=== PATIENT | female | born 1995 | race Caucasian/White ===

== ENCOUNTER 2016-10-05 13:45 | Emergency (ER) | payer OTHER ==
[~2016-10-05] VITALS: Ht 175.3 cm; Wt 95.0 kg
[~2016-10-05 13:45] MED LIST: AMOX500T PO; ZITH250T PO
[2016-10-05 13:50] VITALS: BP 135/87; PULSE 83; RESP 16; TEMP 98.3; O2SAT 94
--- NOTE | 2016-10-05 13:59 | PD ---
HPI Chief Complaint: Back/ Neck Pain or Injury Time Seen by Provider: 13:57 Travel History International Travel<30 days: No Contact w/Intl Traveler<30days: No Traveled to known affect area: No History of Present Illness HPI 20-year-old female presents the emergency department status post fall earlier this morning on slippery steps landing on her left elbow and back. Patient's chief complaint is of pain in the left lateral elbow with decreased ability to extend it. Patient denies numbness, tingling, or decreased director insurance strength in the left hand. She states her left shoulder feels fine. She has some mild tenderness on the lower lumbar region, but no other significant injury complaints. Her pain the elbow is 5 out of 10. She is allergic to amoxicillin and meclizine. PFSH Past Medical History Hx Anticoagulant Therapy: No Diabetes: No Diminished Hearing: Yes (L ear) GERD: Yes Genitourinary: Yes (HX UTI) Respiratory: Yes Immunizations Current: Yes ?: Not : 0 Social History Alcohol Use: Yes (OCCASIONALLY) Tobacco Use: No Substance Use: No Allergies-Medications (Allergen,Severity, Reaction): Coded Allergies: Amoxicillin (Verified Allergy, Mild, RASH, 10/05/16) Meclizine (Verified Adverse Reaction, Intermediate, DIARRHEA, 10/05/16) Reported Meds & Prescriptions Reported Meds & Active Scripts Active Tramadol (Tramadol HCl) 50 Mg Tab 50 Mg PO Q6H PRN Ibuprofen 800 Mg Tab 800 Mg PO Q8H PRN Reported Excedrin Extra Strength (Cfolldn-Fjdkwecguxylr-Aqtnerqn) 250-250-65 Mg Tab 2 Tab PO PRN Review of Systems Except as stated in HPI: all other systems reviewed are Neg General / Constitutional: No: Fever Eyes: No: Visual changes HENT: No: Headaches Cardiovascular: No: Chest Pain or Discomfort Respiratory: No: Shortness of Breath Gastrointestinal: No: Abdominal Pain Genitourinary: No: Dysuria Musculoskeletal: No: Pain Skin: No Rash Neurologic: No: Weakness Psychiatric: No: Depression Endocrine: No: Polydipsia Hematologic/Lymphatic: No: Easy Bruising Physical Exam Narrative GENERAL: Patient appears in no acute distress. SKIN: Warm and dry. Normal turgor. Normal color. No abrasions or ecchymosis noted. HEAD: Atraumatic. Normocephalic. EYES: Pupils equal and round. No scleral icterus. No injection or drainage. ENT: No nasal bleeding or discharge. Mucous membranes pink and moist. Pharynx is clear. No dental injury. Airway is patent. NECK: Trachea midline. No bony tenderness or step-off. Range of motion is full and nontender. CARDIOVASCULAR: Regular rate and rhythm. RESPIRATORY: No accessory muscle use. Clear to auscultation. Breath sounds equal bilaterally. MUSCULOSKELETAL: Extremities without clubbing, cyanosis, or edema. No obvious deformities. Patient has pain over the lateral upper condyle and proximal lateral forearm. Hand and wrist are normal. Flexion and extension of the left elbow are limited secondary to pain. Patient has mild tenderness over the lower lumbar region. No specific bony tenderness or deformity. NEUROLOGICAL: Awake and alert. No obvious cranial nerve deficits. Motor grossly within normal limits. Five out of 5 muscle strength in the arms and legs. Normal speech. PSYCHIATRIC: Appropriate mood and affect; insight and judgment normal. Data Data Last Documented VS Vital Signs Date Time Temp Pulse Resp B/P Pulse Ox O2 Delivery O2 Flow Rate FiO2 10/05/16 13:50 98.3 83 16 135/87 94 Orders Elbow, Complete (4 Vws) (10/05/16 13:59) Ice/Cold Pack (10/05/16 13:59) Ketorolac Inj (Toradol Inj) (10/05/16 14:30) Splint Or Brace Apply/Monitor (10/05/16 14:21) Sling Cradle Arm (10/05/16 ) MDM Medical Decision Making Medical Screen Exam Complete: Yes Emergency Medical Condition: Yes Medical Record Reviewed: Yes Differential Diagnosis Fall. Left elbow contusion. Left elbow fracture. Narrative Course Patient is medically stable at time of exam. X-rays of the left elbow are ordered. Ice packs applied. X-ray shows no obvious fracture or dislocation per radiologist. Patient is a 60 mg Toradol IM for pain. Patient is placed in a sling for comfort. Patient is discharged home with ibuprofen 800 mg 3 times daily with food. #30. Patient also given tramadol 50 mg one every 6 hours when necessary pain #20. Patient should use ice the area frequently and wear sling as needed for comfort. Patient should follow-up with her primary care physician or return to the emergency department if symptoms are not improving over the next week. Diagnosis Primary Impression: Contusion of left elbow, initial encounter Additional Impression: Fall on steps Qualified Code: W10.8XXA - Fall on steps, initial encounter Referrals: Primary Care Physician Patient Instructions: Contusion in Adults (ED), General Instructions Departure Forms: Work Release Special Instructions: Limited use of left arm 1 week. Additional Instructions: X-ray shows no obvious fracture or dislocation per radiologist. Patient is a 60 mg Toradol IM for pain. Patient is placed in a sling for comfort. Patient is discharged home with ibuprofen 800 mg 3 times daily with food. #30. Patient also given tramadol 50 mg one every 6 hours when necessary pain #20. Patient should use ice the area frequently and wear sling as needed for comfort. Patient should follow-up with her primary care physician or return to the emergency department if symptoms are not improving over the next week. Med/Other Pt SpecificInfo: Prescription(s) given Scripts Tramadol 50 Mg Tab50 Mg PO Q6H PRN (PAIN) #20 TAB Prov:Marcia Carbone DO 10/05/16 Ibuprofen 800 Mg Pia260 Mg PO Q8H PRN (Pain/Inflammation) #30 TAB Prov:Marcia Carbone DO 10/05/16 Disposition: 01 DISCHARGE HOME Condition: Stable Rashad Chaudhry Oct 05, 2016 13:59
[2016-10-05] MEDS ORDERED: EXCETAB2 PO (14:01)
[2016-10-05] MEDS ORDERED: KETOROLAC TROMETHAMINE 60 MG/2 ML (IM) VIAL IM ONE (14:30)
[2016-10-05] MEDS ORDERED: IBUP800T23 PO (14:37)
[2016-10-05] MEDS ORDERED: TRAM50TA PO (14:37)
--- NOTE | 2016-10-05 14:38 | RADHPO ---
EXAM DATE/TIME: 10/05/2016 14:06 [facility] COMPARISON: No previous studies available for comparison. INDICATIONS : Left elbow pain; fell today. MEDICAL HISTORY : None. SURGICAL HISTORY : None. ENCOUNTER: Initial ACUITY: 1 day PAIN SCORE: 8/10 LOCATION: Left elbow FINDINGS: Multiple view examination of the left elbow demonstrates no soft tissue swelling, joint effusion, or fracture. The osseous structures are in normal alignment. Bony mineralization is normal. CONCLUSION: Unremarkable examination of the left elbow. Alec Montes De Oca MD on October 05, 2016 at 14:30 Board Certified Radiologist. This report was verified electronically.
== END 2016-10-05 14:53 | disposition home or self-care (01) ==
LOC: PHEFT 13:45
DX: S50.02XA Contusion of left elbow, initial encounter (principal); W10.9XXA Fall (on) (from) unspecified stairs and steps, initial encounter
CPT/HCPCS: 73080; 96372; 99283; J1885

== ENCOUNTER 2017-03-18 11:09 | Emergency (ER) | payer SELFPAY ==
[~2017-03-18] VITALS: Ht 172.7 cm; Wt 93.7 kg
[~2017-03-18 11:09] MED LIST changes: -AMOX500T PO; +EXCETAB2 PO; +IBUP800T23 PO; +TRAM50TA PO; -ZITH250T PO
[2017-03-18 11:12] VITALS: BP 131/66; PULSE 73; RESP 16; TEMP 98; O2SAT 99
[2017-03-18] MEDS ORDERED: SODIUM CHLOR 0.9% 1000 ML INJ 1,000 ML IV ONE ×2 (11:30)
[2017-03-18] MEDS ORDERED: ONDANSETRON HCL 4 MG/2 ML VIAL IV PUSH ONE (11:30)
--- NOTE | 2017-03-18 11:34 | PD ---
HPI Chief Complaint: GI Complaint Time Seen by Provider: 11:24 Travel History International Travel<30 days: No Contact w/Intl Traveler<30days: No Traveled to known affect area: No History of Present Illness HPI This 21-year-old female is complaining of vomiting. She says she's been vomiting for the past 3 days. She had a loose stool a first-aid has not had a bowel movement since. He has some mild abdominal pain. She has never been . She has an explanon on control was inserted in April of 2016. She tried to eat some cereal this morning but has vomited. PFSH Past Medical History Hx Anticoagulant Therapy: No Diabetes: No Diminished Hearing: Yes (L ear) GERD: Yes Genitourinary: Yes (HX UTI) Respiratory: Yes Immunizations Current: Yes ?: Not LMP: ON NEXPLANON : 0 Social History Alcohol Use: Yes (OCCASIONALLY) Tobacco Use: No (QUIT 2015) Substance Use: No Allergies-Medications (Allergen,Severity, Reaction): Coded Allergies: amoxicillin (Unverified Allergy, Mild, PT DENIES, 03/18/17) meclizine (Unverified Adverse Reaction, Intermediate, DIARRHEA, 03/18/17) Reported Meds & Prescriptions Reported Meds & Active Scripts Active Tramadol (Tramadol HCl) 50 Mg Tab 50 Mg PO Q6H PRN Ibuprofen 800 Mg Tab 800 Mg PO Q8H PRN Reported Excedrin Extra Strength (Lhwbsls-Bilrycoltwrdf-Ktwzxjph) 250-250-65 Mg Tab 2 Tab PO PRN Physical Exam Narrative GENERAL: Well-developed female SKIN: Focused skin assessment warm/dry. HEAD: Atraumatic. Normocephalic. EYES: Pupils equal and round. No scleral icterus. No injection or drainage. ENT: No nasal bleeding or discharge. Mucous membranes pink and moist. NECK: Trachea midline. No JVD. CARDIOVASCULAR: Regular rate and rhythm. No murmur appreciated. RESPIRATORY: No accessory muscle use. Clear to auscultation. Breath sounds equal bilaterally. GASTROINTESTINAL: Abdomen soft, non-tender, nondistended. Hepatic and splenic margins not palpable. MUSCULOSKELETAL: No obvious deformities. No clubbing. No cyanosis. No edema. NEUROLOGICAL: Awake and alert. No obvious cranial nerve deficits. Motor grossly within normal limits. Normal speech. PSYCHIATRIC: Appropriate mood and affect; insight and judgment normal. Data Data Last Documented VS Vital Signs Date Time Temp Pulse Resp B/P (MAP) Pulse Ox O2 Delivery O2 Flow Rate FiO2 03/18/17 11:12 98.0 73 16 131/66 (87) 99 Orders Orders Complete Blood Count With Diff (03/18/17 11:29) Comprehensive Metabolic Panel (03/18/17 11:29) Urinalysis - C+S If Indicated (03/18/17 11:29) Ed Urine Pregnancytest Poc (03/18/17 11:29) Sodium Chlor 0.9% 1000 Ml Inj (Ns 1000 M (03/18/17 11:30) Sodium Chlor 0.9% 1000 Ml Inj (Ns 1000 M (03/18/17 11:30) Ondansetron Inj (Zofran Inj) (03/18/17 11:30) Labs Laboratory Tests Test 03/18/17 11:42 White Blood Count 9.4 TH/MM3 Red Blood Count 4.65 MIL/MM3 Hemoglobin 14.1 GM/DL Hematocrit 40.6 % Mean Corpuscular Volume 87.4 FL Mean Corpuscular Hemoglobin 30.4 PG Mean Corpuscular Hemoglobin Concent 34.8 % Red Cell Distribution Width 11.9 % Platelet Count 307 TH/MM3 Mean Platelet Volume 7.5 FL Neutrophils (%) (Auto) 73.9 % Lymphocytes (%) (Auto) 16.9 % Monocytes (%) (Auto) 7.2 % Eosinophils (%) (Auto) 1.4 % Basophils (%) (Auto) 0.6 % Neutrophils # (Auto) 6.9 TH/MM3 Lymphocytes # (Auto) 1.6 TH/MM3 Monocytes # (Auto) 0.7 TH/MM3 Eosinophils # (Auto) 0.1 TH/MM3 Basophils # (Auto) 0.1 TH/MM3 CBC Comment DIFF FINAL Differential Comment Urine Collection Type CLEAN CATCH Urine Color YELLOW Urine Turbidity CLEAR Urine pH 6.0 Urine Specific [place] 1.023 Urine Protein NEG mg/dL Urine Glucose (UA) NEG mg/dL Urine Ketones 15 mg/dL Urine Occult Blood TRACE Urine Nitrite NEG Urine Bilirubin NEG Urine Leukocyte Esterase NEG Urine RBC 4-9 /hpf Urine WBC 0-2 /hpf Urine Squamous Epithelial Cells > 8 /hpf Urine Bacteria OCC /hpf Urine Mucus FEW /lpf Microscopic Urinalysis Comment CULT NOT INDICATED Urine Collection Time 11:42 Blood Urea Nitrogen 12 MG/DL Creatinine 0.81 MG/DL Random Glucose 93 MG/DL Total Protein 7.8 GM/DL Albumin 3.9 GM/DL Calcium Level 9.0 MG/DL Alkaline Phosphatase 56 U/L Aspartate Amino Transf (AST/SGOT) 9 U/L Alanine Aminotransferase (ALT/SGPT) 16 U/L Total Bilirubin 0.4 MG/DL Sodium Level 136 MEQ/L Potassium Level 4.1 MEQ/L Chloride Level 106 MEQ/L Carbon Dioxide Level 21.7 MEQ/L Anion Gap 8 MEQ/L Estimat Glomerular Filtration Rate 88 ML/MIN MDM Medical Decision Making Medical Screen Exam Complete: Yes Emergency Medical Condition: Yes Medical Record Reviewed: Yes Differential Diagnosis Differential includes gastroenteritis, bowel obstruction, dehydration Narrative Course Lab work is fairly normal there is some ketones in the urine. His been given IV fluids and Zofran with improvement. She has been able to tolerate Gatorade. She is stable for discharge Diagnosis Primary Impression: Gastroenteritis Scripts Ondansetron Odt (Zofran Odt) 4 Mg Tab 4 MG SL Q6HR Y for Nausea/Vomiting, #8 TAB 0 Refills Prov: Cullen Lange MD 03/18/17 Disposition: DISCHARGE HOME Condition: Stable Cullen Lange MD Mar 18, 2017 11:33
[2017-03-18 11:45] LABS: AUTOMATED NEUTROPHIL # 6.9 TH/MM3 (1.8-7.7); BASOPHIL # 0.1 TH/MM3 (0-0.2); BASOPHIL % 0.6 % (0.0-2.0); EOSINOPHIL # 0.1 TH/MM3 (0-0.4); EOSINOPHIL % 1.4 % (0.0-4.0); HEMATOCRIT 40.6 % (35.0-46.0); HEMO FLAGS DIFF FINAL; LYMPH % 16.9 % (9.0-44.0); LYMPHOCYTE # 1.6 TH/MM3 (1.0-4.8); MEAN CELL VOLUME 87.4 FL (80.0-100.0); MEAN CORPUSCULAR HEMOGLOBIN 30.4 PG (27.0-34.0); MEAN CORPUSCULAR HGB CONC 34.8 % (32.0-36.0); MONO % 7.2 % (0.0-8.0); NEUT % 73.9 % (16.0-70.0); PLATELET COUNT 307 TH/MM3 (150-450); RED BLOOD COUNT 4.65 MIL/MM3 (4.00-5.30); RED CELL DISTRIBUTION WIDTH 11.9 % (11.6-17.2); WHITE BLOOD COUNT 9.4 TH/MM3 (4.0-11.0)
[2017-03-18 11:46] LABS: GLUCOSE,URINE NEG (NEG); KETONE, URINE 15 mg/dL (NEG); NITRITE,URINE NEG (NEG)
[2017-03-18 11:52] LABS: BLOOD, URINE TRACE (NEG)
[2017-03-18 11:55] LABS: METHOD OF COLLECTION CLEAN CATCH
[2017-03-18 11:56] LABS: BACTERIA, URINE OCC /hpf; COMMENT (UR) CULT NOT INDICATED; CULTURE IF INDICATED CULT NOT INDICATED; MUCUS URINE FEW /lpf (OCC); SQUAMOUS EPITHELIAL CELL URINE > 8 /hpf (0-5); URINE COLOR YELLOW (YELLW/STRAW); WBC, URINE 0-2 /hpf (0-5)
[2017-03-18 12:01] LABS: CHLORIDE 106 MEQ/L (98-107); POTASSIUM 4.1 MEQ/L (3.5-5.1); SODIUM (NA) 136 MEQ/L (136-145)
[2017-03-18 12:05] LABS: ANION GAP 8 MEQ/L (5-15); BICARBONATE 21.7 MEQ/L (21.0-32.0); BLOOD UREA NITROGEN 12 MG/DL (7-18)
[2017-03-18 12:08] LABS: ALT (GPT) 16 U/L (10-53); AST (GOT) 9 U/L (15-37); GLOMERULAR FILTRATION RATE 88 ML/MIN (>89)
[2017-03-18 12:10] LABS: TOTAL BILIRUBIN ADULT 0.4 MG/DL (0.2-1.0)
[2017-03-18 12:11] LABS: ALKALINE PHOSPHATASE 56 U/L (45-117)
[2017-03-18] MEDS ORDERED: ZOFR4TAB3 SL (12:46)
== END 2017-03-18 13:13 | disposition home or self-care (01) ==
LOC: PHED 11:09
DX: K52.9 Noninfective gastroenteritis and colitis, unspecified (principal); K21.9 Gastro-esophageal reflux disease without esophagitis
CPT/HCPCS: 80053; 81001; 84703; 85025; 96374; 99284; J2405; J7030

== ENCOUNTER 2017-06-27 11:11 | Emergency (ER) | payer OTHER ==
[~2017-06-27] VITALS: Ht 172.7 cm; Wt 87.0 kg
[~2017-06-27 11:11] MED LIST changes: +IBUP1TAB7 PO; -IBUP800T23 PO; +ZOFR4TAB3 SL
[2017-06-27 11:16] VITALS: BP 172/87; PULSE 82; RESP 16; TEMP 98.3; O2SAT 98
[2017-06-27] MEDS ORDERED: LIDOCAINE HCL 1% 50 ML VIAL INFIL ONE (11:30)
--- NOTE | 2017-06-27 11:30 | PD ---
HPI Chief Complaint: Oral / Dental Pain or Problem Time Seen by Provider: 11:23 Travel History International Travel<30 days: No Contact w/Intl Traveler<30days: No Traveled to known affect area: No History of Present Illness HPI 21-year-old female here for evaluation of left upper/posterior dental pain and left ear pain. Symptoms have been going on for the last week. She reports history of TMJ as well as been told that her left upper posterior molar/wisdom tooth may need to be pulled. The patient has also had several ear infections. She has not had any fevers. No difficulty with swallowing or breathing. Pain is 7 out of 10 currently, sharp/shooting, radiates to her left ear, worse with eating and opening her mouth. PFSH Past Medical History Hx Anticoagulant Therapy: No Diabetes: No Diminished Hearing: Yes (L ear) GERD: Yes Genitourinary: Yes (HX UTI) Respiratory: Yes Immunizations Current: Yes Influenza Vaccination: Yes ?: Not LMP: LAST WEEK : 0 Social History Alcohol Use: Yes (OCCASIONALLY) Tobacco Use: No (QUIT 2015) Substance Use: No Allergies-Medications (Allergen,Severity, Reaction): Coded Allergies: meclizine (Unverified Adverse Reaction, Intermediate, DIARRHEA, 06/27/17) Reported Meds & Prescriptions Reported Meds & Active Scripts Active No Active Prescriptions or Reported Medications Review of Systems Except as stated in HPI: all other systems reviewed are Neg Physical Exam Narrative GENERAL: Well-developed, well-nourished, comfortable, no apparent distress. SKIN: Focused skin assessment warm/dry. HEAD: Atraumatic. Normocephalic. EYES: Pupils equal and round. No scleral icterus. No injection or drainage. ENT: No nasal bleeding or discharge. Mucous membranes pink and moist. Normal pharynx. Normal appearing teeth. Slight tenderness to left upper posterior molars. No swelling. No fluctuance or induration. No trismus. No drooling or stridor. Bilateral tympanic members and external auditory canals are normal. NECK: Trachea midline. No JVD. CARDIOVASCULAR: Regular rate and rhythm. RESPIRATORY: No accessory muscle use. Clear to auscultation. Breath sounds equal bilaterally. MUSCULOSKELETAL: No obvious deformities. No clubbing. No cyanosis. No edema. NEUROLOGICAL: Awake and alert. No obvious cranial nerve deficits. Motor grossly within normal limits. Normal speech. PSYCHIATRIC: Appropriate mood and affect; insight and judgment normal. Data Data Last Documented VS Vital Signs Date Time Temp Pulse Resp B/P (MAP) Pulse Ox O2 Delivery O2 Flow Rate FiO2 06/27/17 11:16 98.3 82 16 172/87 (115) 98 Orders Orders Lidocaine 1% Inj (50 Ml) (Xylocaine 1% I (06/27/17 11:30) [facility] Medical Decision Making Medical Screen Exam Complete: Yes Emergency Medical Condition: Yes Medical Record Reviewed: Yes Differential Diagnosis Dental cavity, dental infection, otitis media, eustachian tube dysfunction, TMJ Narrative Course Vital signs reviewed. Left greater palatine nerve block was performed with immediate relief of pain. Patient has no facial swelling. There is no trismus. No drooling or stridor. She may have an infection developing around her impacted left upper wisdom tooth. Plan is to start her on Pen-Vee K and have her follow-up with a dentist this week. She was advised on when to return to the emergency department. She verbalizes understanding and agreement with plan. Procedures Procedure Narrative Left greater palatine nerve block: 0.5 cc of 1% lidocaine was injected in the area of the left greater palatine nerve. The patient experienced immediate relief of pain. No complications. Tolerated well. Diagnosis Primary Impression: Pain, dental Referrals: Dentist 3 days Additional Instructions: Follow-up with a dentist this week. Return to the emergency department for worsening symptoms or any other concerns. Scripts Penicillin V Potassium (Penicillin V Potassium) 500 Mg Tab 500 MG PO Q6H for Infection for 7 Days, #28 TAB 0 Refills Prov: Elvin Langston MD 06/27/17 Disposition: 01 DISCHARGE HOME Condition: Stable Elvin Langston MD Jun 27, 2017 11:30
[2017-06-27] MEDS ORDERED: PENI500T PO (11:39)
== END 2017-06-27 11:46 | disposition home or self-care (01) ==
LOC: PHEFT 11:11
DX: K08.89 Other specified disorders of teeth and supporting structures (principal); H92.02 Otalgia, left ear; M26.609 Unspecified temporomandibular joint disorder, unspecified side
CPT/HCPCS: 64400

== ENCOUNTER 2017-08-23 14:10 | Emergency (ER) | payer OTHER ==
[~2017-08-23] VITALS: Ht 172.7 cm; Wt 82.5 kg
[~2017-08-23 14:10] MED LIST changes: -EXCETAB2 PO; -IBUP1TAB7 PO; +PENI500T PO; -TRAM50TA PO; -ZOFR4TAB3 SL
[2017-08-23 14:13] VITALS: BP 144/84; PULSE 77; RESP 16; TEMP 98.7; O2SAT 98
--- NOTE | 2017-08-23 14:32 | PD ---
HPI Chief Complaint: Skin Problem Time Seen by Provider: 14:25 Travel History International Travel<30 days: No Contact w/Intl Traveler<30days: No Traveled to known affect area: No History of Present Illness HPI 21-year-old female that presents to the ED for evaluation of mole. Per patient she's noted this moment for quite some time. Per patient she's had this since . Per patient she got concerned because for the past couple days she's noted that the mole itself has been changing colors and having black spots to it. It also appears to be getting swollen. She is concerned because apparently one of her siblings recently got diagnosed with melanoma with similar symptoms and she is concerned that this might be related to that. Denies any injuries or falls. No fevers chills or sweats. No weakness. She has not seen a 2nd pressman. Per patient she is currently here for school and has no local PCP. No pain. No other medical issues. PFSH Past Medical History Medical History: Denies Significant Hx Hx Anticoagulant Therapy: No Diabetes: No Diminished Hearing: Yes (L ear) GERD: Yes Genitourinary: Yes (HX UTI) Respiratory: Yes Immunizations Current: Yes Tetanus Vaccination: < 5 Years Influenza Vaccination: Yes ?: Not LMP: 08/22/2017 : 0 Past Surgical History Surgical History: No Previous Surgery Social History Alcohol Use: Yes (OCCASIONALLY) Tobacco Use: No (QUIT 2015) Substance Use: No Allergies-Medications (Allergen,Severity, Reaction): Coded Allergies: meclizine (Unverified Adverse Reaction, Intermediate, DIARRHEA, 08/23/17) Reported Meds & Prescriptions Reported Meds & Active Scripts Active No Active Prescriptions or Reported Medications Review of Systems Except as stated in HPI: all other systems reviewed are Neg Physical Exam Narrative GENERAL: SKIN: Warm and dry. She has a surgical him on her right upper arm that is less than a quarter centimeter in diameter. Some swelling noted as well as darkening of the mole in the edges of it. Some erythema noted. HEAD: Atraumatic. Normocephalic. EYES: Pupils equal and round. No scleral icterus. No injection or drainage. ENT: No nasal bleeding or discharge. Mucous membranes pink and moist. NECK: Trachea midline. No JVD. CARDIOVASCULAR: Regular rate and rhythm. RESPIRATORY: No accessory muscle use. Clear to auscultation. Breath sounds equal bilaterally. GASTROINTESTINAL: Abdomen soft, non-tender, nondistended. Hepatic and splenic margins not palpable. MUSCULOSKELETAL: Extremities without clubbing, cyanosis, or edema. No obvious deformities. NEUROLOGICAL: Awake and alert. No obvious cranial nerve deficits. Motor grossly within normal limits. Five out of 5 muscle strength in the arms and legs. Normal speech. PSYCHIATRIC: Appropriate mood and affect; insight and judgment normal. Data Data Last Documented VS Vital Signs Date Time Temp Pulse Resp B/P (MAP) Pulse Ox O2 Delivery O2 Flow Rate FiO2 08/23/17 14:13 98.7 77 16 144/84 (104) 98 Orders Orders Ed Discharge Order (08/23/17 14:29) [facility] Medical Decision Making Medical Screen Exam Complete: Yes Emergency Medical Condition: Yes Medical Record Reviewed: Yes Differential Diagnosis Skin cancer versus dematitis versus mole Narrative Course 21-year-old female that presents to the ED for evaluation of mole. Patient was properly examined and was found to have signs and symptoms consistent with appears to be a typical mole. Because of her family history do recommend that she follows up with 2nd pressman to get biopsy of the skin lesion to better assess whether this is precancers or not. Unfortunately we do not do this in the ER. She understands this. I was able to look on line a couple of 2nd pressman in the area that she can follow-up with. She agrees to follow-up with some of them. She understands is up to her to get follow-up for this. See ED worsening symptoms. Follow with PCP. Diagnosis Primary Impression: Atypical mole Patient Instructions: General Instructions Additional Instructions: Follow up with Cook [facility]. A couple of dermatologists in the area (don't know if they take your insurance though) are: [facility] Advanced dermatology [facility] You can also call your insurance provider to see if they know of a 2nd pressman that might take your insurance in the area. See ED if worst. Med/Other Pt SpecificInfo: No Change to Meds Scripts No Active Prescriptions or Reported Meds Disposition: 01 DISCHARGE HOME Condition: Babak Frank Aug 23, 2017 14:32
== END 2017-08-23 14:36 | disposition home or self-care (01) ==
LOC: PHEFT 14:10
DX: D22.61 Melanocytic nevi of right upper limb, including shoulder (principal)
CPT/HCPCS: 99282